=== PATIENT | female | born 1970 | race Caucasian/White ===

== ENCOUNTER 2023-03-31 08:54 | Outpatient (RCR) | payer BC, SELFPAY | END 2023-03-31 23:59 | disposition home or self-care (01) | LOC: RPT 08:54 | PROVIDERS: ATTENDING PHYSICIAN Orthopaedic Surgery; FAMILY PHYSICIAN Family Medicine | DX: Z47.1 Aftercare following joint replacement surgery (principal); Z96.652 Presence of left artificial knee joint; Z73.6 Limitation of activities due to disability | CPT/HCPCS: 97010; 97110; 97140; 97162; 97530 ==

== ENCOUNTER 2023-04-28 08:57 | Outpatient (RCR) | payer BC, SELFPAY | END 2023-04-28 23:59 | disposition home or self-care (01) | LOC: RPT 08:57 | PROVIDERS: ATTENDING PHYSICIAN Orthopaedic Surgery; FAMILY PHYSICIAN Family Medicine | DX: Z47.1 Aftercare following joint replacement surgery (principal); Z96.652 Presence of left artificial knee joint; Z73.6 Limitation of activities due to disability | CPT/HCPCS: 97010; 97110; 97116; 97140; 97530 ==

== ENCOUNTER 2023-05-28 09:45 | Outpatient (RCR) | payer BC, SELFPAY | END 2023-05-28 23:59 | disposition home or self-care (01) | LOC: RPT 09:45 | PROVIDERS: ATTENDING PHYSICIAN Orthopaedic Surgery; FAMILY PHYSICIAN Family Medicine | DX: Z47.1 Aftercare following joint replacement surgery (principal); Z96.652 Presence of left artificial knee joint; Z73.6 Limitation of activities due to disability | CPT/HCPCS: 97010; 97110; 97112; 97530 ==

== ENCOUNTER → 2023-05-29 10:06 | Outpatient (REF) | payer BC, SELFPAY | LOC: WDC 10:06 | PROVIDERS: ATTENDING PHYSICIAN Nurse Practitioner Adult Health | DX: Z12.31 Encounter for screening mammogram for malignant neoplasm of breast (principal) | CPT/HCPCS: 77063; 77067 ==

== ENCOUNTER 2023-06-30 17:09 | Outpatient (RCR) | payer BC, SELFPAY | END 2023-06-30 23:59 | disposition home or self-care (01) | LOC: RPT 17:09 | PROVIDERS: ATTENDING PHYSICIAN Orthopaedic Surgery; FAMILY PHYSICIAN Family Medicine | DX: Z47.1 Aftercare following joint replacement surgery (principal); Z73.6 Limitation of activities due to disability; M25.562 Pain in left knee; R26.89 Other abnormalities of gait and mobility; Z96.652 Presence of left artificial knee joint | CPT/HCPCS: 97010; 97110; 97112; 97530 ==

== ENCOUNTER 2023-07-23 17:49 | Outpatient (RCR) | payer BC, SELFPAY | END 2023-07-23 23:59 | disposition home or self-care (01) | LOC: RPT 17:49 | PROVIDERS: ATTENDING PHYSICIAN Orthopaedic Surgery; FAMILY PHYSICIAN Family Medicine | DX: Z47.1 Aftercare following joint replacement surgery (principal); Z96.652 Presence of left artificial knee joint | CPT/HCPCS: 97110; 97112; 97530 ==

== ENCOUNTER 2023-08-11 18:00 | Outpatient (RCR) | payer BC, SELFPAY | END 2023-08-12 07:37 | disposition home or self-care (01) | LOC: RPT 18:00 | PROVIDERS: ATTENDING PHYSICIAN Orthopaedic Surgery; FAMILY PHYSICIAN Family Medicine | DX: Z47.1 Aftercare following joint replacement surgery (principal); Z96.652 Presence of left artificial knee joint; Z73.6 Limitation of activities due to disability; M25.562 Pain in left knee | CPT/HCPCS: 97110; 97112; 97530 ==

== ENCOUNTER → 2023-09-24 14:56 | Outpatient (REF) | payer BC, SELFPAY | LOC: CLAB 14:56 | PROVIDERS: ATTENDING PHYSICIAN Obstetrics & Gynecology Gynecology | DX: Z01.419 Encounter for gynecological examination (general) (routine) without abnormal findings (principal) | CPT/HCPCS: 87624; G0123 ==

== ENCOUNTER → 2023-11-06 07:04 | Outpatient (REF) | payer BC, SELFPAY ==
[2023-11-06 09:06] LABS: FSH 12.2 mIU/ml; Luteinizing Hormone 3.63 mIU/ml
[2023-11-06 09:21] LABS: Estradiol 31.4 pg/ml
== END ==
LOC: REG 07:04
PROVIDERS: ATTENDING PHYSICIAN Obstetrics & Gynecology Gynecology; FAMILY PHYSICIAN Family Medicine
DX: N95.1 Menopausal and female climacteric states (principal)
CPT/HCPCS: 36415; 82670; 83001; 83002

== ENCOUNTER → 2024-01-13 17:13 | Outpatient (REF) | payer BC, SELFPAY ==
[2024-01-13 17:36] LABS: % Basophils 0.9 % (0-2); % Immature Granulocytes 0.3 % (0-0.5); % Lymphocytes 26.1 % (20.5-51.1); % Monocytes 12.8 % (1.7-9.3); % Neutrophils 54.9 % (42.2-75.2); Absolute Basophils 0.1 10^3/uL (0-0.2); Absolute Eosinophils 0.3 10^3/uL (0-0.7); Absolute Lymphocytes 1.5 10^3/uL (1.2-3.4); Absolute Monocytes 0.7 10^3/uL (0.1-0.6); Absolute Neutrophils 3.2 10^3/uL (1.4-6.5); Hematocrit 36.4 % (37.0-47.0); Hemoglobin 12.2 g/dL (12.0-16.0); Mean Corp Hgb Conc. 33.5 g/dL (33.0-37.0); Mean Corpuscular Hgb 32.8 pg (27.0-31.0); Mean Corpuscular Volume 97.8 fL (81.0-99.0); Mean Platelet Volume 8.9 fL (7.4-10.4); Nucleated Red Blood Cells % 0 %; Platelet Count 247 10^3/uL (130-400); Red Blood Cell Count 3.72 10^6/uL (4.20-5.40); Red Cell Dist. Width 13.2 % (11.5-14.5); White Blood Cell Count 5.8 10^3/uL (4.8-10.8)
[2024-01-13 17:49] LABS: ALT (SGPT) 21 U/L (0-35); AST (SGOT) 33 U/L (14-36); Albumin 4.2 g/dl (3.5-5.0); Alkaline Phosphatase 53 U/L (38-126); Blood Urea Nitrogen 17 mg/dl (7-17); Calcium 9.3 mg/dl (8.4-10.2); Carbon Dioxide 25 mmol/L (22-30); Chloride 105 mmol/L (98-107); Glucose 95 mg/dl (70-99); Potassium 4.7 mmol/L (3.5-5.1); Sodium 139 mmol/L (135-145); Total Bilirubin 0.3 mg/dl (0.2-1.3); Total Protein 7.2 g/dl (6.3-8.2); eGFR > 60.00
[2024-01-13 18:34] LABS: Erythrocyte Sed Rate 22 mm/hour (0-20)
== END ==
LOC: REG 17:13
PROVIDERS: ATTENDING PHYSICIAN Internal Medicine Rheumatology; FAMILY PHYSICIAN Family Medicine
DX: M05.79 Rheumatoid arthritis with rheumatoid factor of multiple sites without organ or systems involvement (principal)
CPT/HCPCS: 36415; 80053; 85025; 85652; 86140

== ENCOUNTER → 2024-06-17 08:50 | Outpatient (REF) | payer BC, SELFPAY | LOC: WDC 08:50 | PROVIDERS: ATTENDING PHYSICIAN Obstetrics & Gynecology Gynecology; FAMILY PHYSICIAN Family Medicine | DX: Z12.31 Encounter for screening mammogram for malignant neoplasm of breast (principal) | CPT/HCPCS: 77063; 77067 ==

== ENCOUNTER → 2024-06-30 09:01 | Outpatient (REF) | payer BC, SELFPAY ==
[2024-06-30 09:28] LABS: % Basophils 0.5 % (0-2); % Eosinophils 2.2 % (0-6); % Immature Granulocytes 0.2 % (0-0.5); % Lymphocytes 23.9 % (20.5-51.1); % Monocytes 10.5 % (1.7-9.3); % Neutrophils 62.7 % (42.2-75.2); Absolute Eosinophils 0.1 10^3/uL (0-0.7); Absolute Lymphocytes 1.4 10^3/uL (1.2-3.4); Absolute Monocytes 0.6 10^3/uL (0.1-0.6); Absolute Neutrophils 3.7 10^3/uL (1.4-6.5); Hematocrit 39.4 % (37.0-47.0); Mean Corpuscular Hgb 31.9 pg (27.0-31.0); Mean Corpuscular Volume 96.6 fL (81.0-99.0); Mean Platelet Volume 9.4 fL (7.4-10.4); Nucleated Red Blood Cells % 0 %; Platelet Count 298 10^3/uL (130-400); Red Blood Cell Count 4.08 10^6/uL (4.20-5.40); Red Cell Dist. Width 13.2 % (11.5-14.5); White Blood Cell Count 5.8 10^3/uL (4.8-10.8)
[2024-06-30 10:54] LABS: ALT (SGPT) 24 U/L (0-35); AST (SGOT) 30 U/L (14-36); Albumin 3.9 g/dl (3.5-5.0); Alkaline Phosphatase 43 U/L (38-126); Blood Urea Nitrogen 17 mg/dl (7-17); Calcium 9.2 mg/dl (8.4-10.2); Carbon Dioxide 25 mmol/L (22-30); Chloride 108 mmol/L (98-107); Glucose 80 mg/dl (70-99); HDL Cholesterol 73 mg/dl; LDL Cholesterol, Calculated 59 mg/dl; Potassium 4.3 mmol/L (3.5-5.1); Sodium 141 mmol/L (135-145); Total Bilirubin 0.5 mg/dl (0.2-1.3); Total Cholesterol 151 mg/dl (50-199); Total Protein 6.9 g/dl (6.3-8.2); Triglyceride 98 mg/dl (10-149); Very Low Density Lipoprotein 19 mg/dl (0-30); eGFR > 60.00
[2024-06-30 11:26] LABS: TSH Reflex To Free T4 1.98 uIU/ml (0.47-4.68)
[2024-06-30 11:44] LABS: Vitamin B12 324 pg/ml (239-931)
== END ==
LOC: WDC 09:01
PROVIDERS: Nurse Practitioner Adult Health; ATTENDING PHYSICIAN Obstetrics & Gynecology Gynecology; FAMILY PHYSICIAN Family Medicine
DX: Z00.00 Encounter for general adult medical examination without abnormal findings (principal); R63.8 Other symptoms and signs concerning food and fluid intake; Z13.220 Encounter for screening for lipoid disorders; Z13.29 Encounter for screening for other suspected endocrine disorder; R92.8 Other abnormal and inconclusive findings on diagnostic imaging of breast
CPT/HCPCS: 36415; 76642; 80053; 80061; 82607; 84443; 85025

== ENCOUNTER 2024-07-27 18:53 | Outpatient (RCR) | payer BC, SELFPAY | END 2024-07-27 23:59 | disposition home or self-care (01) | LOC: RPT 18:53 | PROVIDERS: ATTENDING PHYSICIAN Orthopaedic Surgery; FAMILY PHYSICIAN Family Medicine | DX: M25.362 Other instability, left knee (principal); M16.12 Unilateral primary osteoarthritis, left hip; M76.32 Iliotibial band syndrome, left leg; M54.16 Radiculopathy, lumbar region; R26.89 Other abnormalities of gait and mobility; M62.81 Muscle weakness (generalized); Z96.652 Presence of left artificial knee joint | CPT/HCPCS: 97110; 97162; 97535 ==

== ENCOUNTER 2024-08-10 19:04 | Outpatient (RCR) | payer BC, SELFPAY | END 2024-08-10 23:59 | disposition home or self-care (01) | LOC: RPT 19:04 | PROVIDERS: ATTENDING PHYSICIAN Orthopaedic Surgery; FAMILY PHYSICIAN Family Medicine | DX: M25.362 Other instability, left knee (principal); M16.12 Unilateral primary osteoarthritis, left hip; M76.32 Iliotibial band syndrome, left leg; M54.16 Radiculopathy, lumbar region; R26.89 Other abnormalities of gait and mobility; M62.81 Muscle weakness (generalized); Z96.652 Presence of left artificial knee joint | CPT/HCPCS: 97110 ==

== ENCOUNTER → 2024-11-07 17:15 | Outpatient (REF) | payer BC, SELFPAY ==
[2024-11-07 17:44] LABS: Hematocrit 36.5 % (37.0-47.0); Hemoglobin 12.0 g/dL (12.0-16.0); Mean Corp Hgb Conc. 32.9 g/dL (33.0-37.0); Mean Corpuscular Volume 98.4 fL (81.0-99.0); Nucleated Red Blood Cells % 0 %; Platelet Count 276 10^3/uL (130-400); Red Cell Dist. Width 13.1 % (11.5-14.5)
[2024-11-07 17:57] LABS: ALT (SGPT) 29 U/L (0-35); AST (SGOT) 34 U/L (14-36); Albumin 4.1 g/dl (3.5-5.0); Alkaline Phosphatase 57 U/L (38-126); Blood Urea Nitrogen 33 mg/dl (7-17); Calcium 9.5 mg/dl (8.4-10.2); Carbon Dioxide 25 mmol/L (22-30); Chloride 103 mmol/L (98-107); Glucose 85 mg/dl (70-99); Potassium 4.5 mmol/L (3.5-5.1); Sodium 135 mmol/L (135-145); Total Protein 7.1 g/dl (6.3-8.2); eGFR > 60.00
[2024-11-07 18:16] LABS: C-Reactive Protein 5.80 mg/L (0.0-10.00)
== END ==
LOC: REG 17:15
PROVIDERS: ATTENDING PHYSICIAN Internal Medicine Rheumatology; FAMILY PHYSICIAN Family Medicine
DX: M05.79 Rheumatoid arthritis with rheumatoid factor of multiple sites without organ or systems involvement (principal)
CPT/HCPCS: 36415; 80053; 85025; 85652; 86140

== ENCOUNTER → 2024-11-27 06:35 | Outpatient (REF) | payer BC, SELFPAY | LOC: PAVMRI 06:35 | PROVIDERS: ATTENDING PHYSICIAN Physical Medicine & Rehabilitation; FAMILY PHYSICIAN Family Medicine; REFERRING PHYSICIAN Internal Medicine Rheumatology | DX: M54.16 Radiculopathy, lumbar region (principal) | CPT/HCPCS: 72148 ==

== ENCOUNTER → 2024-12-19 13:02 | Outpatient (REF) | payer BC, SELFPAY ==
[2024-12-19 13:36] LABS: Hematocrit 38.3 % (37.0-47.0); Hemoglobin 12.1 g/dL (12.0-16.0); Mean Corp Hgb Conc. 31.6 g/dL (33.0-37.0); Mean Corpuscular Volume 101.3 fL (81.0-99.0); Platelet Count 287 10^3/uL (130-400); Red Cell Dist. Width 13.3 % (11.5-14.5)
[2024-12-19 13:39] VITALS: BP 133/86; BP_SYST 83
[2024-12-19 13:47] LABS: APTT 24.9 Sec (23.4-35.0); INR 0.99; PT 13.4 Sec (11.4-14.6)
== END ==
LOC: RADI 13:02
PROVIDERS: ATTENDING PHYSICIAN Physical Medicine & Rehabilitation; FAMILY PHYSICIAN Family Medicine; REFERRING PHYSICIAN Physician Assistant
DX: M54.16 Radiculopathy, lumbar region (principal)
CPT/HCPCS: 36415; 64483; 85027; 85610; 85730

== ENCOUNTER 2024-12-29 17:03 | Outpatient (RCR) | payer BC, SELFPAY | END 2024-12-29 23:59 | disposition home or self-care (01) | LOC: RPT 17:03 | PROVIDERS: ATTENDING PHYSICIAN Physical Medicine & Rehabilitation; FAMILY PHYSICIAN Family Medicine | DX: M54.16 Radiculopathy, lumbar region (principal); M48.061 Spinal stenosis, lumbar region without neurogenic claudication; M51.362 Other intervertebral disc degeneration, lumbar region with discogenic back pain and lower extremity pain; Z73.6 Limitation of activities due to disability; R26.89 Other abnormalities of gait and mobility; M62.81 Muscle weakness (generalized) | CPT/HCPCS: 97110; 97112; 97162 ==

== ENCOUNTER → 2025-01-06 13:02 | Outpatient (REF) | payer BC, SELFPAY ==
[2025-01-06 13:37] VITALS: BP 115/83; BP_SYST 73
[2025-01-06 13:39] LABS: INR 1.00; PT 13.5 Sec (11.4-14.6)
== END ==
LOC: RADI 13:02
PROVIDERS: ATTENDING PHYSICIAN Physical Medicine & Rehabilitation; FAMILY PHYSICIAN Family Medicine; OTHER PHYSICIAN Physician Assistant
DX: M54.16 Radiculopathy, lumbar region (principal)
CPT/HCPCS: 36415; 62323; 85610

== ENCOUNTER 2025-01-12 17:11 | Outpatient (RCR) | payer BC, SELFPAY | END 2025-01-12 23:59 | disposition home or self-care (01) | LOC: RPT 17:11 | PROVIDERS: ATTENDING PHYSICIAN Physical Medicine & Rehabilitation; FAMILY PHYSICIAN Family Medicine | DX: M54.16 Radiculopathy, lumbar region (principal); M48.061 Spinal stenosis, lumbar region without neurogenic claudication; M51.362 Other intervertebral disc degeneration, lumbar region with discogenic back pain and lower extremity pain; Z73.6 Limitation of activities due to disability; R26.89 Other abnormalities of gait and mobility; M62.81 Muscle weakness (generalized) | CPT/HCPCS: 97110; 97112 ==

== ENCOUNTER 2025-01-19 18:01 | Day surgery (SDC) | payer BC, SELFPAY ==
[2025-01-19] VITALS (11 sets, daily range): BP systolic 107–140; BP diastolic 66–90
--- NOTE | 2025-01-19 12:00 | ED.GENMED ---
History of Present Illness
<Radha Daniel PA-C - Last Filed: 01/19/25 16:30>
General
Chief Complaint: Abdominal Pain
Source: patient
Exam Limitations: none
Time Seen by Provider: 01/19/25 11:32
History of Present Illness
History of Present Illness:
54yoF with a history of rheumatoid arthritis on Rinvoq presenting for evaluation of abdominal pain. Patient woke up from sleep around 1am this morning feeling like she had to have a bowel movement. She was able to pass a small amount of stool and
noticed pain in her right lower abdomen. Pain has been constant since then and has been gradually worsening. She describes feeling like there is something 'expanding but there is not enough room.' Pain is currently rated as a 6/10 in severity and
is worse with movement. She endorses nausea but denies vomiting. Temperature 99.4 on arrival which is high for her. Patient was seen by her PCP earlier today and was sent to the ED for evaluation.
Phy Exam
<Radha Daniel PA-C - Last Filed: 01/19/25 16:30>
General Physical Exam
General Presentation: well appearing and no apparent distress
General Skin: warm and dry
General Habitus: normal
General Mental: alert
ENT Exam
ENT Exam: normocephalic
Pulmonary Exam
Pulmonary Exam: no respiratory distress
Gastrointestinal Exam
Gastrointestinal Exam: soft, non distended and other (+Tenderness in RLQ and suprapubic regions with rebound tenderness.)
Neurological Exam
Neurological Exam: alert
Monica Coma Scale
Eye Opening: Spontaneous
Verbal Response: Oriented
Motor Response: Obeys Commands
GCS Total Score: 15
Skin Exam
Skin Exam: normal color and warm/dry
Psychiatric Exam
Psychiatric Exam: normal mood/affect
Sepsis
<Radha Daniel PA-C - Last Filed: 01/19/25 16:30>
Sepsis Screening
Sepsis Assessment: Sepsis Ruled Out
Sepsis Screen
Sepsis Screen: Sepsis Ruled Out
Date: 01/19/25
Time: 16:29
<Rober Zendejas DO - Last Filed: 01/19/25 15:32>
Sepsis Screen
Sepsis Screen: Sepsis Ruled Out
Date: 01/19/25
Time: 15:32
Course
<Radha Daniel PA-C - Last Filed: 01/19/25 16:30>
Orders/Labs/Results
Orders:
Orders
01/19/25 11:55
0.9% Sodium Chloride 1000 ml [Nss] 1,000 ml IV BOLUS
Ketorolac [Toradol] 15 mg IV NOW STA
01/19/25 11:56
CT Abd/pelvis W Iv Cont Urgent
Comment:
Reason For Exam: RLQ pain
Test Result ONCE
01/19/25 12:12
Complete Blood Count/With Diff Urgent
Comprehensive Metabolic Panel Urgent
HCG, Serum Qualitative Screen Urgent
01/19/25 Dinner
NPO
Allow oral meds: Yes
Allow clear liquids: No
NPO with Ice Chips: Yes
01/19/25 15:20
CefTRIAXone [Rocephin] 2,000 mg IV NOW STA
MetroNIDAZOLE 500 MG/100 ML [Flagyl 500 mg] 100 ml IV NOW
01/19/25 15:46
Fentanyl Citrate/Pf [Sublimaze] 25 mcg IV [id number] PRN
HYDROmorphone [Dilaudid] 0.25 mg IV PACU-Q5MPRN PRN
HYDROmorphone [Dilaudid] 0.5 mg IV PACU-Q5MPRN PRN
Ondansetron Injectable [Zofran] 4 mg IV PACU-ONCEPRN PRN
Prochlorperazine [Compazine] 5 mg IV PACU-ONCEPRN PRN
Notify MD As Directed
Notify physician if: for SDS patients with known or suspected sleep obstructive sleep apnea, monitor in the
PACU.
Notify MD for any apneic/desaturation episodes
O2 Therapy [RESP] Urgent
Titrate/Wean O2 to maintain O2 sat greater than (%): 92
Special Instructions: -Provide supplemental oxygen to achieve O2 sat of 92% or greater.
-After 15 min, may wean O2 and discontinue if patient is able to maintain O2 sat of 92%
or greater during recovery period.
If patient is a discharge home, without oxygen therapy, notify anestheiologist if
unable to maintain O2 SAT of 92% or greater on room air for MD clearance.
01/19/25 16:00
Code Status As Directed
Resuscitation Status: Full Code
0.9% Sodium Chloride 1000 ml [Nss] 1,000 ml IV 120 mls/hr
Acetaminophen [Tylenol] 650 mg PO Q4HPRN PRN
CefTRIAXone [Rocephin] 2,000 mg IV Q12H
HYDROmorphone [Dilaudid] 0.5 mg IV Q2HPRN PRN
HYDROmorphone [Dilaudid] 1 mg IV Q2HPRN PRN
MetroNIDAZOLE 500 MG/100 ML [Flagyl 500 mg] 100 ml IV Q8H
Normosol (Mult Electrolytes) [Normosol-R/Plasmalyte-A] 1,000 ml IV PER PROTOCOL
Ondansetron Injectable [Zofran] 4 mg IV Q6HPRN PRN
Oxycodone [Roxicodone] 5 mg PO Q4HPRN PRN
Prochlorperazine [Compazine] 5 mg IV Q6HPRN PRN
01/19/25 16:01
Admit Patient As Directed
Co-Sign Provider:
Level of Care: Post Proc/Surg Recovery
Assign to:: Medical/Surgical
Physician / Group: Willie Fuentes
Diagnosis: appendicitis
Reason for Overnight Stay: Standard of Care
Activity As Directed
Activity Level: As Tolerated
Intake/ Output As Directed
Frequency: Per unit guidelines
Pneumatic Compression Sleeves As Directed
Type: Knee high
Vital Signs As Directed
Frequency: Per unit guidelines
PRN Pain Medication Management As Directed
May give lesser potent ordered pain med per pt: Yes
preference::
Protocol:: Medication orders for pain may be administered in a
manner that supports deferring to patient preference
when the pt is:
- Requesting an ordered lesser potent pain medication.
Least to most potent pain medications are defined
as: acetaminophen < NSAID < tramadol < opioids
(morphine, oxycodone, hydromorphone).
- Requesting a lesser dose of the same medication IF
ORDERED.
- Requesting a less intrusive route of administration
if both routes are prescribed by the provider (PO <
IV).
DX Deep Vein Thrombosis Video Routine
01/19/25 16:02
Cold Application As Directed
Location: incisions
Frequency: PRN
Duration of Application: No longer than 30 minutes
Method of Delivery: Ice packs
Method of Delivery: Ice packs
01/19/25 18:00
Enoxaparin Sodium [Lovenox] 40 mg SC QPM
01/20/25 08:00
Escitalopram Oxalate [Lexapro] 20 mg PO DAILY
Hydroxychloroquine [Plaquenil] 400 mg PO DAILY
upadacitinib [Rinvoq] 15 mg PO DAILY
Abnormal Lab Results
01/19/25
12:12
RBC 3.82 L 10^6/uL
(4.20-5.40)
MCV 99.2 H fL
(81.0-99.0)
MCH 33.5 H pg
(27.0-31.0)
Absolute Neuts (auto) 8.2 H 10^3/uL
(1.4-6.5)
Absolute Lymphs (auto) 0.9 L 10^3/uL
(1.2-3.4)
Absolute Monos (auto) 1.1 H 10^3/uL
(0.1-0.6)
Neutrophils % 79.8 H %
(42.2-75.2)
Lymphocytes % 8.5 L %
(20.5-51.1)
Monocytes % 10.3 H %
(1.7-9.3)
Sodium 132 L mmol/L
(135-145)
BUN 20 H mg/dl
(7-17)
01/19/25 12:12
01/19/25 12:12
Vital Signs
Initial and Last Documented VS:
Initial Vital Signs
Temp Pulse Resp BP Pulse Ox
99.4 F 78 16 136/90 99
01/19/25 11:27 01/19/25 11:27 01/19/25 11:27 01/19/25 11:27 01/19/25 11:27
Last Documented Vital Signs
Temp Pulse Resp BP Pulse Ox
99.4 F 78 16 136/90 99
01/19/25 11:27 01/19/25 11:27 01/19/25 11:27 01/19/25 11:27 01/19/25 12:01
<Rober Zendejas, DO - Last Filed: 01/19/25 15:32>
Orders/Labs/Results
Orders:
Orders
01/19/25 11:55
0.9% Sodium Chloride 1000 ml [Nss] 1,000 ml IV BOLUS
Ketorolac [Toradol] 15 mg IV NOW STA
01/19/25 11:56
CT Abd/pelvis W Iv Cont Urgent
Comment:
Reason For Exam: RLQ pain
Test Result ONCE
01/19/25 12:12
Complete Blood Count/With Diff Urgent
Comprehensive Metabolic Panel Urgent
HCG, Serum Qualitative Screen Urgent
01/19/25 Dinner
NPO
Allow oral meds: Yes
Allow clear liquids: No
NPO with Ice Chips: Yes
01/19/25 15:20
CefTRIAXone [Rocephin] 2,000 mg IV NOW STA
MetroNIDAZOLE 500 MG/100 ML [Flagyl 500 mg] 100 ml IV NOW
01/19/25 15:46
Fentanyl Citrate/Pf [Sublimaze] 25 mcg IV [id number] PRN
HYDROmorphone [Dilaudid] 0.25 mg IV PACU-Q5MPRN PRN
HYDROmorphone [Dilaudid] 0.5 mg IV PACU-Q5MPRN PRN
Ondansetron Injectable [Zofran] 4 mg IV PACU-ONCEPRN PRN
Prochlorperazine [Compazine] 5 mg IV PACU-ONCEPRN PRN
Notify MD As Directed
Notify physician if: for SDS patients with known or suspected sleep obstructive sleep apnea, monitor in the
PACU.
Notify MD for any apneic/desaturation episodes
O2 Therapy [RESP] Urgent
Titrate/Wean O2 to maintain O2 sat greater than (%): 92
Special Instructions: -Provide supplemental oxygen to achieve O2 sat of 92% or greater.
-After 15 min, may wean O2 and discontinue if patient is able to maintain O2 sat of 92%
or greater during recovery period.
If patient is a discharge home, without oxygen therapy, notify anestheiologist if
unable to maintain O2 SAT of 92% or greater on room air for MD clearance.
01/19/25 16:00
Code Status As Directed
Resuscitation Status: Full Code
0.9% Sodium Chloride 1000 ml [Nss] 1,000 ml IV 120 mls/hr
Acetaminophen [Tylenol] 650 mg PO Q4HPRN PRN
CefTRIAXone [Rocephin] 2,000 mg IV Q12H
HYDROmorphone [Dilaudid] 0.5 mg IV Q2HPRN PRN
HYDROmorphone [Dilaudid] 1 mg IV Q2HPRN PRN
MetroNIDAZOLE 500 MG/100 ML [Flagyl 500 mg] 100 ml IV Q8H
Normosol (Mult Electrolytes) [Normosol-R/Plasmalyte-A] 1,000 ml IV PER PROTOCOL
Ondansetron Injectable [Zofran] 4 mg IV Q6HPRN PRN
Oxycodone [Roxicodone] 5 mg PO Q4HPRN PRN
Prochlorperazine [Compazine] 5 mg IV Q6HPRN PRN
01/19/25 16:01
Admit Patient As Directed
Co-Sign Provider:
Level of Care: Post Proc/Surg Recovery
Assign to:: Medical/Surgical
Physician / Group: Willie Fuentes
Diagnosis: appendicitis
Reason for Overnight Stay: Standard of Care
Activity As Directed
Activity Level: As Tolerated
Intake/ Output As Directed
Frequency: Per unit guidelines
Pneumatic Compression Sleeves As Directed
Type: Knee high
Vital Signs As Directed
Frequency: Per unit guidelines
PRN Pain Medication Management As Directed
May give lesser potent ordered pain med per pt: Yes
preference::
Protocol:: Medication orders for pain may be administered in a
manner that supports deferring to patient preference
when the pt is:
- Requesting an ordered lesser potent pain medication.
Least to most potent pain medications are defined
as: acetaminophen < NSAID < tramadol < opioids
(morphine, oxycodone, hydromorphone).
- Requesting a lesser dose of the same medication IF
ORDERED.
- Requesting a less intrusive route of administration
if both routes are prescribed by the provider (PO <
IV).
DX Deep Vein Thrombosis Video Routine
01/19/25 16:02
Cold Application As Directed
Location: incisions
Frequency: PRN
Duration of Application: No longer than 30 minutes
Method of Delivery: Ice packs
Method of Delivery: Ice packs
01/19/25 18:00
Enoxaparin Sodium [Lovenox] 40 mg SC QPM
01/20/25 08:00
Escitalopram Oxalate [Lexapro] 20 mg PO DAILY
Hydroxychloroquine [Plaquenil] 400 mg PO DAILY
upadacitinib [Rinvoq] 15 mg PO DAILY
Abnormal Lab Results
01/19/25
12:12
RBC 3.82 L 10^6/uL
(4.20-5.40)
MCV 99.2 H fL
(81.0-99.0)
MCH 33.5 H pg
(27.0-31.0)
Absolute Neuts (auto) 8.2 H 10^3/uL
(1.4-6.5)
Absolute Lymphs (auto) 0.9 L 10^3/uL
(1.2-3.4)
Absolute Monos (auto) 1.1 H 10^3/uL
(0.1-0.6)
Neutrophils % 79.8 H %
(42.2-75.2)
Lymphocytes % 8.5 L %
(20.5-51.1)
Monocytes % 10.3 H %
(1.7-9.3)
Sodium 132 L mmol/L
(135-145)
BUN 20 H mg/dl
(7-17)
01/19/25 12:12
01/19/25 12:12
Vital Signs
Initial and Last Documented VS:
Initial Vital Signs
Temp Pulse Resp BP Pulse Ox
99.4 F 78 16 136/90 99
01/19/25 11:27 01/19/25 11:27 01/19/25 11:27 01/19/25 11:27 01/19/25 11:27
Last Documented Vital Signs
Temp Pulse Resp BP Pulse Ox
99.4 F 78 16 136/90 99
01/19/25 11:27 01/19/25 11:27 01/19/25 11:27 01/19/25 11:27 01/19/25 12:01
<Radha Daniel PA-C - Last Filed: 01/19/25 16:30>
MDM/Problems Addressed
Differential Diagnosis Includes:
54yoF here with RLQ pain that began overnight. Also c/o nausea. VSS. Patient non-toxic appearing. Rebound tenderness noted on exam. Differential diagnosis includes but is not limited to: appendicitis, mesenteric adenitis, colitis, diverticulitis,
kidney stone, ovarian pathology
Initial ED plan: Check CBC, CMP, HCG, and CT abdomen. IV Toradol and fluid bolus for symptoms.
<Radha Daniel PA-C - Last Filed: 01/19/25 16:30>
*Pulse Oximetry
SaO2: 99
Oxygen Mode of Delivery: Room air
Patient hypoxic: no
*Critical Care Note
Total Time (30-74mins, 75-104mins- exclusive of procedures): Not Applicable
<Radha Daniel PA-C - Last Filed: 01/19/25 16:30>
Update Note
Update Note:
CT shows acute nonperforated appendicitis. White count within normal limits. IV Rocephin and Flagyl ordered (PCN allergy but has tolerated cephalosporins in the past). General surgery notified and patient admitted for further management.
ED Attending Note
<Radha Daniel PA-C - Last Filed: 11/20/25 16:30>
-
Portions of this chart may have been created with voice recognition software.� Occasional wrong word or��sound alike� substitutions may have occurred due to the inherent limitations of voice recognition software.
<Rober Zendejas, DO - Last Filed: 01/19/25 15:32>
ED Attending Note
Patient seen and examined by attending physician: Yes
I performed the substantive portion of visit, reviewed & personally made and approve the management plan that is documented in note by myself or JESSICA.: Yes
ED Attending Note:
I have seen and evaluated the patient with a [id number] encounter. I have spoken to the advance practicer provider and involved in the medical history, the physical exam, medical decision making.
Evaluation and management service: agree unless noted differently below.
Results interpretation: agree unless noted differently below.
Focused HPI: 54-year-old female present with right lower quadrant pain associated with nausea she denies vomiting or diarrhea. Patient is on Rinvoq for RA
Physical exam: Point tenderness to right lower quadrant.
Medical Decision Making: CT consistent with acute appendicitis. Will start antibiotics and discussed case with surgery
Discharge Plan
Departure
Patient Disposition: Admit
Date of Disposition: 01/19/25
Time of Disposition: 15:28
Presentation/result/management discussed w/ accepting MD/DO: Dr. Fuentes
Discharge Problem:
Acute appendicitis
Prescriptions:
No Action
hydroxychloroquine 200 mg Tablet
400 mg PO DAILY
escitalopram oxalate 20 mg Tablet
20 mg PO DAILY
Theragen Tablet
1 tab PO DAILY
norethindrone-e.estradiol-iron [Aurovela Fe 1-20 (28)] 1 mg-20 mcg (21)/75 mg (7) Tablet
1 tab PO DAILY
calcium carbonate [Calcium 500] 500 mg calcium (1,250 mg) Tablet
500 mg PO DAILY
ibuprofen [Advil] 200 mg Tablet
400 mg PO DAILYPRN PRN (Reason: mild pain)
Rinvoq 15 mg Tablet Extended Release 24 Hr
15 mg PO DAILY
vitamin D3-vitamin K2 125-90 mcg Capsule
1 cap PO DAILY
Airsupra 90-80 mcg/actuation Hfa Aerosol Inhaler
2 inh INHALATION R Q6HPRN PRN (Reason: sob)
Rx Instructions:
as a single dose; may repeat up to 6 doses per day (12 inhalations)
acetaminophen [Tylenol Extra Strength] 500 mg tablet
1,000 mg PO Q6HPRN PRN (Reason: mild pain)
Referrals:
Rober Roque MD [Family Provider, Family Practice]
Interventions
Interventions:
*Risk Screen - Suicide Last Done: 01/19/25 11:27
*Neglect/Abuse Screening Last Done: 01/19/25 11:27
Discharge Date and Time
Print Language: SPANISH
[2025-01-19 12:23] LABS: Hematocrit 37.9 % (37.0-47.0); Hemoglobin 12.8 g/dL (12.0-16.0); Mean Corp Hgb Conc. 33.8 g/dL (33.0-37.0); Mean Corpuscular Volume 99.2 fL (81.0-99.0); Nucleated Red Blood Cells % 0 %; Platelet Count 209 10^3/uL (130-400); Red Cell Dist. Width 13.6 % (11.5-14.5)
[2025-01-19 12:30] LABS: HCG, Serum Qualitative Screen Negative
[2025-01-19 12:31] LABS: ALT (SGPT) 29 U/L (0-35); AST (SGOT) 27 U/L (14-36); Albumin 3.9 g/dl (3.5-5.0); Alkaline Phosphatase 43 U/L (38-126); Blood Urea Nitrogen 20 mg/dl (7-17); Calcium 8.9 mg/dl (8.4-10.2); Carbon Dioxide 25 mmol/L (22-30); Chloride 104 mmol/L (98-107); Glucose 82 mg/dl (70-99); Potassium 3.7 mmol/L (3.5-5.1); Sodium 132 mmol/L (135-145); Total Protein 6.9 g/dl (6.3-8.2); eGFR > 60.00
[2025-01-19] MEDS: TORADOL 15 MG IV (12:41)
[2025-01-19] MEDS: NSS 1000 IV ×2 (12:42→20:45)
--- NOTE | 2025-01-19 15:52 | HPS.HSE ---
Family Physician
-
Family Physician: Rober Roque
Chief Complaint
-
Abdominal pain
History of Present Illness
Patient is a 54-year-old female who was in her usual baseline state of health until over this past evening when she awoke at 1 AM with the acute onset of abdominal pain. It was initially more generalized in nature but as it increased in severity
began localizing to the right lower quadrant prompting emergency department evaluation. She initially had nausea but no vomiting. The nausea has subsided a bit but anorexia persists. She moved her bowels multiple times after her symptoms started
but none since. No similar episodes like this in the past
Medical History
Past Medical History
Past Medical History: Reports Other (Rheumatoid arthritis, chronic lower back pain/lumbar, anxiety/depression)
Past Surgical History: Reports Orthopedic and Urological (Ureteral surgery as a child)
Social History
Tobacco: Non-smoker
Personal:
Living: With Family
Family History
Family History: Not pertinent
Allergies / Home Medications
Allergies reflects when Allergies were last updated in [facility].
Home Medications with original date entered in [facility]
Allergy/Medication List:
Allergies
Allergy/AdvReac Type Severity Reaction Status Date / Time
morphine Allergy Unknown Verified 01/19/25 11:27
nickel Allergy Itching Verified 01/19/25 11:27
Penicillins Allergy Hives Verified 01/19/25 11:27
�Medication �Instructions �Recorded �Confirmed �Type
escitalopram oxalate 20 mg tablet 20 mg PO DAILY Mental 02/04/23 01/19/25 History
Health/Anxiety
hydroxychloroquine 200 mg tablet 400 mg PO DAILY 02/04/23 01/19/25 History
acetaminophen 500 mg tablet 1,000 mg PO Q6HPRN PRN mild pain 01/19/25 01/19/25 History
(Tylenol Extra Strength)
albuterol 90 mcg-budesonide 80 2 inh inhalation R Q6HPRN PRN sob 01/19/25 01/19/25 History
mcg/actuation HFA aerosol inhaler
(Airsupra)
calcium carbonate 500 mg PO DAILY Supplement 01/19/25 01/19/25 History
ibuprofen 200 mg tablet (Advil) 400 mg PO DAILYPRN PRN mild pain 01/19/25 01/19/25 History
norethindrone 1 mg-ethinyl 1 tab PO DAILY Hormonal Agent 01/19/25 01/19/25 History
estradiol 20 mcg (21)-iron 75 mg
(7) tablet (Aurovela Fe 1-20 (28))
therapeutic multivitamin 1 tab PO DAILY Supplement 01/19/25 01/19/25 History
upadacitinib 15 mg tablet,extended 15 mg PO DAILY 01/19/25 01/19/25 History
release 24 hr (Rinvoq)
vitamin D3 125 mcg (5,000 1 cap PO DAILY Supplement 01/19/25 01/19/25 History
unit)-vitamin K2 90 mcg capsule
Review of Systems
-
History Source: Patient
A 12 point ROS was completed and negative except as noted: Yes
Physical Exam
Vital Signs
Vital Signs
Temp Pulse Resp BP Pulse Ox
99.4 F 78 16 136/90 99
01/19/25 11:27 01/19/25 11:27 01/19/25 11:27 01/19/25 11:27 01/19/25 12:01
Physical Exam
General: Well Developed, Well Nourished, No Apparent Distress and Conversant
HEENT: NormoCephalic, Anicteric and Moist mucous membranes
Respiratory: Non Labored Respirations
Cardiac: Regular Rhythm
GI: Soft, Non Distended, Tender (Suprapubic right lower quadrant. Voluntary guarding in the right lower quadrant.) and Other (Right lateral abdominal wall surgical scar, mid abdomen level)
Skin: Warm
Neuro: AO x 3
Psych: Calm
Laboratory Results
-
01/19/25 12:12
01/19/25 12:12
Laboratory Results
Total Bilirubin 0.7 mg/dl (0.2-1.3) 01/19/25 12:12
AST 27 U/L (14-36) 01/19/25 12:12
ALT 29 U/L (0-35) 01/19/25 12:12
Alkaline Phosphatase 43 U/L (38-126) 01/19/25 12:12
Data Reviewed
-
CT Scan: Image Personally Visualized and interpreted (Distended appendix measuring up to 1.1 cm. Surrounding fat stranding consistent with inflammation. No abscess. No free fluid. No significant additional incidental findings.), Report Reviewed
by me, Discussed with Patient and Discussed with Family
Impression/Plan
-
IMPRESSION: 54-year-old female with acute appendicitis.
Reviewed with patient history, examination and CT imaging consistent with acute appendicitis. Discussed both operative and nonoperative management options and associated risks/benefits of approaches. Patient is in agreement to proceed with
appendectomy.
Laparoscopic appendectomy reviewed in detail with the patient. Discussed operative technique utilizing diagrams or drawings, alternative management options, benefits and potential risks such as but not limited to bleeding, infectious or wound
healing complications, iatrogenic injury to surrounding viscera. Discussed the typical postoperative recovery pending operative findings.
Any of the patient's concerns or questions were fully addressed and informed consent was obtained.
Plan: OR for laparoscopic appendectomy.
Empiric antibiotic coverage with Levaquin and Flagyl.
Nothing by mouth, IV fluid hydration and supportive care awaiting operative room availability.
SCDs for DVT prophylaxis
[2025-01-19] MEDS: ROCEPHIN 2000 MG IV ×2 (16:08→16:50)
[2025-01-19] MEDS: FLAGYL 500 MG 100 IV ×3 (16:08→23:00)
--- NOTE | 2025-01-19 16:09 | W.SUR.PREOP ---
Pre-Operative Surgical Note
-
I have examined this patient prior to the performance of the scheduled procedure.
The patient's condition is unchanged from the time of the current History and
Physical and the patient is able to undergo the scheduled procedure.
--- NOTE | 2025-01-19 16:36 | CM ---
Chart reviewed and spoke with patient and her at ED bedside
plan is to go to OR for appendectomy
Lives with in [facility]
ambulating with SPC for herniated back
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
PCP Dr. Rober Roque
[facility] in [place]
no hx of VN nor SNF
DCP is to go home
can provide transportation
CM will follow up for any dcp needs
--- NOTE | 2025-01-19 18:50 | W.IMMPOSTOP ---
Addendum entered and electronically signed by Willie Fuentes MD 02/07/25 16:17:
#[id number]
Original Note:
Surgical Immed Post Op Note
-
Primary Surgeon: Willie Fuentes MD
Assisting Surgeon: none
Pre-op Diagnosis: Acute appendicitis
Post-op Diagnosis: Acute appendicitis
Procedure Performed: Laparoscopic appendectomy
Anesthesia Type: GETA +0.25% Marcaine
Specimen / Cultures: Appendix/none
Estimated Blood Loss: 6 mL
Complications: None immediate
Operative Findings: Distended, acutely inflamed appendix with some exudative adhesions. No abscess, no perforation, no disruption of appendix with appendectomy
Patient's updated postoperatively and surgical waiting area
Continue current antibiotics postop overnight. No anticipated need for antibiotics on discharge tomorrow
[2025-01-19] MEDS: DILAUDID 0.25 MG IV ×2 (19:36→20:01)
[2025-01-19] MEDS: LOVENOX 40 MG SC (20:50)
--- NOTE | 2025-01-19 21:00 | PTCARENOTE ---
Patient is a 54-year-old female arrived from PACU to at 20:41 post Laparoscopic appendectomy, Anesthesia Type: GETA +0.25% Marcaine, Estimated Blood Loss: 6 mL PMH - Rheumatoid arthritis, chronic lower back pain/lumbar, anxiety/depression,
frequent headaches, heart murmur, long QT. B/L Hard of Hearing. Pt AOx3, pain at an acceptable level. bed in a low position, at bedside, call light in reach.
[2025-01-20] MEDS: DILAUDID 0.5 MG IV (02:25)
[2025-01-20 03:10] VITALS: BP 115/66
[2025-01-20] MEDS: ROCEPHIN 2000 MG IV (04:18)
[2025-01-20] MEDS: NSS 1000 IV (06:00)
[2025-01-20 07:20] VITALS: BP 123/76
[2025-01-20] MEDS: PLAQUENIL 400 MG PO (08:08)
[2025-01-20] MEDS: LEXAPRO 20 MG PO (08:08)
[2025-01-20] MEDS: FLAGYL 500 MG 100 IV (08:09)
[2025-01-20] MEDS: ROXICODONE 5 MG PO (08:11)
--- NOTE | 2025-01-20 08:32 | CM ---
Cm reviewed medical records. Plan for discharge to home with no needs noted.
PLAN: home no needs.
--- NOTE | 2025-01-20 09:45 | W.PN.GS2 ---
Addendum entered and electronically signed by Missael Trejo MD 01/20/25 10:32:
I saw and examined the patient.
The Lens Assorter's note was reviewed and I agree with the note.
Comment: Ambulating, jacklyn PO, issues with pain control. Exam approp, incisions cdi. Possible DC later today if pain control improves
Original Note:
Today's Communication / Plan
-
pain management
dispo planning
Assessment / Plan
-
54 yo female presenting with acute appendicitis now POD #1 lap appi
AFVSS
Following expected post operative course
Plan:
Continue regular diet as tolerated
D/C IVF
Analgesic prn. Tylenol, Toradol, oxycodone prn with Dilaudid for breakthrough. Fioricet for AVILA
ABX through today then will d/c
Lovenox/SCDs for VTE ppx
anticipae d/c later today if pain well controlled
Subjective Data
-
Date of Service: January 20, 2025
Pt seen and examined at bedside with Dr. Trjeo. Notes soreness to incision but able to ambulate. Tolerating diet. Mild headache this am. Denies n/v. Passing flatus.
Objective Data
-
Intake and Output
01/19/25 01/20/25 01/21/25
06:59 06:59 06:59
Intake Total 75 / 75 2119
Balance 75 / 75 2119
Intake:
Oral fluids 480 / 480
IV fluids (Total) 75 / 75 1440 / 1440
normosol 75 / 75
IV piggybacks 200 / 200
Other:
Number of approximated MODERATE 1
amounts of urine
Number of approximated LARGE 1
amounts of urine
Vital Signs
Temp Pulse Resp BP Pulse Ox
99.4 F 66 16 123/76 97
01/20/25 07:20 01/20/25 07:20 01/20/25 07:20 01/20/25 07:20 01/20/25 07:20
Lab Results
01/19/25 12:12
01/19/25 12:12
Calcium 8.9 mg/dl (8.4-10.2) 01/19/25 12:12
Total Bilirubin 0.7 mg/dl (0.2-1.3) 01/19/25 12:12
AST 27 U/L (14-36) 01/19/25 12:12
ALT 29 U/L (0-35) 01/19/25 12:12
Alkaline Phosphatase 43 U/L (38-126) 01/19/25 12:12
Total Protein 6.9 g/dl (6.3-8.2) 01/19/25 12:12
Albumin 3.9 g/dl (3.5-5.0) 01/19/25 12:12
Physical Exam
-
NAD
ABD soft, nd, expected ttp
Incisions well approximated with intact glue
[2025-01-20] MEDS: FIORICET 1 TAB PO (09:59)
[2025-01-20] MEDS: TORADOL 10 MG IV (10:01)
--- NOTE | 2025-01-20 11:11 | W.DS.TRANS ---
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
-
Discharge Instructions:
Discharge Diagnosis/Procedures Acute appendicitis. Laparoscopic appendectomy
Diet As tolerated,Regular
Additional Diets Smaller meals initially after surgery as
abdominal bloating and distention are common for
the first few days
Activity No strenuous activity
Driving Restrictions No driving for 1 to 2 days refusing narcotics
Bathing Restrictions OK to Shower
Wound Care Glue at surgical sites typically peels off in 2
to 3 weeks
Instructions:
Stand-Alone Forms:
Changes to Home Medications: No
Discharge Medications:
DC Medications w/original date entered in [employer]
escitalopram oxalate 20 mg tablet 20 mg PO DAILY Mental Health/Anxiety 02/04/23
hydroxychloroquine 200 mg tablet 400 mg PO DAILY 02/04/23
acetaminophen 500 mg tablet (Tylenol Extra Strength) 1,000 mg PO Q6HPRN PRN mild pain 01/19/25
albuterol 90 mcg-budesonide 80 mcg/actuation HFA aerosol inhaler (Airsupra) 2 inh inhalation R Q6HPRN PRN sob 01/19/25
calcium carbonate 500 mg PO DAILY Supplement 01/19/25
ibuprofen 200 mg tablet (Advil) 400 mg PO DAILYPRN PRN mild pain 01/19/25
norethindrone 1 mg-ethinyl estradiol 20 mcg (21)-iron 75 mg (7) tablet (Aurovela Fe 1-20 (28)) 1 tab PO DAILY Hormonal Agent 01/19/25
therapeutic multivitamin 1 tab PO DAILY Supplement 01/19/25
upadacitinib 15 mg tablet,extended release 24 hr (Rinvoq) 15 mg PO DAILY 01/19/25
vitamin D3 125 mcg (5,000 unit)-vitamin K2 90 mcg capsule 1 cap PO DAILY Supplement 01/19/25
oxycodone 5 mg tablet 5 mg PO Q4HPRN PRN breakthrough/severe pain #10 tabs 01/20/25
Home Medication Changes
Pending Results: No
[2025-01-20 12:06] VITALS: BP 95/82
[2025-01-20] MEDS: FLUZONE (6 mos+) 2025-2026 FORMULA 0.5 ML IM (12:22)
== END 2025-01-20 12:45 | disposition home or self-care (01) ==
LOC: SDS 18:01
PROVIDERS: Physician Assistant; ATTENDING PHYSICIAN Surgery; EMERGENCY PHYSICIAN Student in an Organized Health Care Education/Training Program; FAMILY PHYSICIAN Family Medicine
DX: K35.80 Unspecified acute appendicitis (principal)
CPT/HCPCS: 44970; 74177; 80053; 84703; 85025; 88304; 90656; 96361; 96365; 96375; 99285; G0008; Q9967

== ENCOUNTER 2025-02-28 08:20 | Outpatient (RCR) | payer BC, SELFPAY | END 2025-02-28 23:59 | disposition home or self-care (01) | LOC: RPT 08:20 | PROVIDERS: ATTENDING PHYSICIAN Physical Medicine & Rehabilitation; FAMILY PHYSICIAN Family Medicine | DX: M54.16 Radiculopathy, lumbar region (principal); M48.061 Spinal stenosis, lumbar region without neurogenic claudication; M51.362 Other intervertebral disc degeneration, lumbar region with discogenic back pain and lower extremity pain; Z73.6 Limitation of activities due to disability; R26.89 Other abnormalities of gait and mobility; M62.81 Muscle weakness (generalized) | CPT/HCPCS: 97110; 97112 ==